=== PATIENT | male | born 1965 | race Caucasian/White ===

== ENCOUNTER 2022-06-25 12:25 | Inpatient (IN) | payer OTHER, SELFPAY ==
[~2022-06-25 12:25] MED LIST: Iopamidol 370 76% 100 ML VIAL ONE
[2022-06-25 13:15] LABS: #Eosinphils 0.2 10x3/uL (0.0-0.5); #Monocytes 0.5 10x3/uL (0.0-1.1); #Neutrophils 5.1 10x3/uL (1.5-8.4); %Basophils 0.4 % (0.0-2.0); %Eosinophils 2.9 % (0.0-6.0); %Lymphocytes 23.5 % (18.0-47.0); %Monocytes 6.2 % (0.0-10.0); %Neutrophils 66.6 % (40.0-75.0); Hemoglobin 17.1 g/dL (13.5-17.5); Mean Corpuscular HGB CONC 33.8 g/dL (32.0-36.0); Mean Platelet Volume 9.4 fl (7.4-10.4); Platelet Count 245 10x3/uL (150-450); RBC Distribution Width 11.8 % (11.5-14.5); White Blood Cell (WBC) Count 7.6 10x3/uL (3.5-10.5)
[2022-06-25 13:26] LABS: PTT 29.3 sec (22.0-33.0); Prothrombin Time 10.3 sec (9.5-12.1)
[2022-06-25 13:29] LABS: ALT (SGPT) 65 U/L (8-55); AST (SGOT) 36 U/L (5-34); Albumin 4.4 g/dL (3.5-5.0); Alkaline Phosphatase 63 U/L (40-110); Anion Gap 18 mmol/L (10-20); BUN (Urea Nitrogen) 18 mg/dL (8.4-25.7); Bilirubin, Total 0.9 mg/dL (0.2-1.2); Calc. Creatinine Clearance 0 mL/min (70-130); Calcium 9.5 mg/dL (7.8-10.44); Carbon Dioxide 20 mmol/L (22-29); Chloride 104 mmol/L (98-107); Estimated GFR 79; Globulin 3.3 g/dL (2.4-3.5); Glucose 253 mg/dL (70-105); Potassium 4.8 mmol/L (3.5-5.1); Protein, Total 7.7 g/dL (6.0-8.3); Sodium 137 mmol/L (136-145)
[2022-06-25] MEDS ORDERED: Dextrose 5% in Water 1,000 ML IV PRN (15:07)
[2022-06-25] MEDS ORDERED: Dextrose 50% Abboject 50 ML SYRINGE SLOW IVP PRN (15:07)
[2022-06-25] MEDS ORDERED: Acetaminophen 500 MG TAB ONE (19:07)
[2022-06-25] MEDS ORDERED: Acetaminophen 500 MG TAB PO SCH (19:15)
[2022-06-25] MEDS: Atorvastatin Calcium 20 MG TAB PO SCH (21:27)
[2022-06-26 03:58] VITALS: BMI 32.1
[2022-06-26 06:24] LABS: #Eosinphils 0.1 10x3/uL (0.0-0.5); #Monocytes 0.4 10x3/uL (0.0-1.1); #Neutrophils 3.1 10x3/uL (1.5-8.4); %Basophils 0.8 % (0.0-2.0); %Eosinophils 1.7 % (0.0-6.0); %Lymphocytes 30.2 % (18.0-47.0); %Monocytes 8.3 % (0.0-10.0); %Neutrophils 58.8 % (40.0-75.0); Hemoglobin 15.8 g/dL (13.5-17.5); Mean Corpuscular HGB CONC 33.4 g/dL (32.0-36.0); Mean Corpuscular Hemoglobin 27.9 pg (27.0-33.0); Mean Corpuscular Volume 83.6 fl (81.2-95.1); Mean Platelet Volume 9.3 fl (7.4-10.4); Platelet Count 203 10x3/uL (150-450); RBC Distribution Width 11.8 % (11.5-14.5); Red Blood Cell (RBC) Count 5.66 10x6/uL (4.32-5.72); White Blood Cell (WBC) Count 5.3 10x3/uL (3.5-10.5)
[2022-06-26 06:33] LABS: ALT (SGPT) 52 U/L (8-55); AST (SGOT) 26 U/L (5-34); Albumin 3.6 g/dL (3.5-5.0); Alkaline Phosphatase 53 U/L (40-110); Anion Gap 13 mmol/L (10-20); BUN (Urea Nitrogen) 17 mg/dL (8.4-25.7); Bilirubin, Total 0.9 mg/dL (0.2-1.2); Calc. Creatinine Clearance 123 mL/min (70-130); Carbon Dioxide 24 mmol/L (22-29); Chloride 104 mmol/L (98-107); Estimated GFR 96; Glucose 228 mg/dL (70-105); Potassium 4.4 mmol/L (3.5-5.1); Protein, Total 6.6 g/dL (6.0-8.3); Sodium 137 mmol/L (136-145)
[2022-06-26] MEDS ORDERED: Clopidogrel Bisulfate 75 MG TAB PO SCH (09:45)
[2022-06-26] MEDS: Aspirin 81 mg Enteric Coated Tablet PO SCH (09:57)
[2022-06-26 10:17] LABS: Cardiac Risk 4.5 (Less than 4.5)
[2022-06-26] MEDS: HumaLOG 300 UNITS/3 ML VIAL SC PRN ×2 (13:03→20:55)
[2022-06-26 17:36] LABS: Hemoglobin A1c 11.7 % (4.0-6.0)
[2022-06-26] MEDS ORDERED: Lantus 1000 UNITS/10 ML VIAL SC SCH (18:00)
[2022-06-26] MEDS: Atorvastatin Calcium 20 MG TAB PO SCH (20:55)
[2022-06-27 06:08] LABS: #Eosinphils 0.1 10x3/uL (0.0-0.5); #Monocytes 0.6 10x3/uL (0.0-1.1); #Neutrophils 3.6 10x3/uL (1.5-8.4); %Basophils 0.7 % (0.0-2.0); %Lymphocytes 28.5 % (18.0-47.0); %Monocytes 9.4 % (0.0-10.0); %Neutrophils 59.1 % (40.0-75.0); Hemoglobin 16.7 g/dL (13.5-17.5); Mean Corpuscular HGB CONC 34.3 g/dL (32.0-36.0); Mean Corpuscular Hemoglobin 28.5 pg (27.0-33.0); Mean Corpuscular Volume 83.2 fl (81.2-95.1); Mean Platelet Volume 9.1 fl (7.4-10.4); Platelet Count 210 10x3/uL (150-450); RBC Distribution Width 11.7 % (11.5-14.5); Red Blood Cell (RBC) Count 5.85 10x6/uL (4.32-5.72)
[2022-06-27 06:26] LABS: ALT (SGPT) 57 U/L (8-55); AST (SGOT) 27 U/L (5-34); Albumin 3.7 g/dL (3.5-5.0); Alkaline Phosphatase 55 U/L (40-110); Anion Gap 15 mmol/L (10-20); BUN (Urea Nitrogen) 21 mg/dL (8.4-25.7); Bilirubin, Total 1.1 mg/dL (0.2-1.2); Calc. Creatinine Clearance 114 mL/min (70-130); Calcium 9.1 mg/dL (7.8-10.44); Carbon Dioxide 24 mmol/L (22-29); Chloride 104 mmol/L (98-107); Estimated GFR 88; Globulin 3.3 g/dL (2.4-3.5); Glucose 193 mg/dL (70-105); Potassium 4.9 mmol/L (3.5-5.1); Sodium 138 mmol/L (136-145)
[2022-06-27] MEDS: HumaLOG 300 UNITS/3 ML VIAL SC PRN (06:26)
[2022-06-27] MEDS: Aspirin 81 mg Enteric Coated Tablet PO SCH (08:06)
[2022-06-27] MEDS ORDERED: Clopidogrel Bisulfate 75 MG TAB PO SCH (09:00)
[2022-06-27 13:28] VITALS: BP 176/89; TEMP 98.2
[2022-06-27] MEDS ORDERED: Lantus 1000 UNITS/10 ML VIAL SC SCH (21:00)
== END 2022-06-27 14:10 | disposition home or self-care (01) | DRG 65 ==
LOC: CSHERS 12:25 → CSHERHOLD 14:48 → CSHTELE 20:52
PROVIDERS: ADMIT Family Medicine; ATTEND Internal Medicine
DX: I63.9 Cerebral infarction, unspecified (principal); G81.94 Hemiplegia, unspecified affecting left nondominant side; E66.9 Obesity, unspecified; I10 Essential (primary) hypertension; N52.9 Male erectile dysfunction, unspecified; E11.9 Type 2 diabetes mellitus without complications; E78.5 Hyperlipidemia, unspecified; Z68.32 Body mass index [BMI] 32.0-32.9, adult; Z98.52 Vasectomy status; R29.702 NIHSS score 2
CPT/HCPCS: 0042T; 36415; 36416; 70450; 70551; 80053; 80061; 83036; 84443; 84484; 85025; 85610; 85730; 93005; 93306; 93880; 94760; J1650; J1815; Q9967

== ENCOUNTER 2025-01-14 14:12 | Inpatient (IN) | payer BC ==
[2025-01-14 14:55] LABS: INR-International Normal Ratio 1.0; Prothrombin Time 10.6 sec (9.5-12.1)
[2025-01-14 15:14] LABS: ALT (SGPT) 38 U/L (Less than 45); AST (SGOT) 24 U/L (11-34); Albumin 3.7 g/dL (3.1-4.5); Alkaline Phosphatase 52 U/L (40-110); Anion Gap 11 mmol/L (10-20); BUN (Urea Nitrogen) 33 mg/dL (8.4-25.7); Bilirubin, Total 0.8 mg/dL (0.3-1.2); Calc. Creatinine Clearance 0 mL/min (70-130); Calcium 8.6 mg/dL (7.8-10.44); Carbon Dioxide 26 mmol/L (22-29); Chloride 106 mmol/L (98-107); Globulin 2.6 g/dL (2.4-3.5); Glucose 126 mg/dL (70-105); Potassium 4.7 mmol/L (3.5-5.1); Sodium 138 mmol/L (136-145)
[2025-01-14 16:10] LABS: #Basophils 0.04 10x3/uL (0.0-0.2); #Eosinophils 0.09 10x3/uL (0.0-0.5); #Monocytes 0.51 10x3/uL (0.0-1.1); #Neutrophils 4.61 10x3/uL (1.5-8.4); %Basophils 0.5 % (0.0-2.0); %Eosinophils 1.2 % (0.0-6.0); %Lymphocytes 31.5 % (18.0-47.0); %Monocytes 6.6 % (0.0-10.0); %Neutrophils 60.1 % (40.0-75.0); Hematocrit 30.0 % (38.8-50.0); Hemoglobin 9.9 g/dL (13.5-17.5); Mean Corpuscular Hemoglobin 28.9 pg (27.0-33.0); Mean Corpuscular Volume 87.7 fL (81.2-95.1); Platelet Count 243 10x3/uL (150-450); Red Blood Cell (RBC) Count 3.42 10x6/uL (4.32-5.72); White Blood Cell (WBC) Count 7.68 10x3/uL (3.5-10.5)
[2025-01-14] MEDS ORDERED: Acetaminophen 325 MG TAB PO PRN (17:23)
[2025-01-14] MEDS ORDERED: Dextrose 50% Abboject 50 ML SYRINGE SLOW IVP PRN (17:23)
[2025-01-14] MEDS ORDERED: Glucagon 1 MG/ML KIT IM PRN (17:23)
[2025-01-14 17:37] LABS: Hematocrit 28.1 % (38.8-50.0); Hemoglobin 9.2 g/dL (13.5-17.5)
[2025-01-14 19:42] VITALS: BMI 29.9
[2025-01-14] MEDS: Famotidine/PF 20 mg/2ml Vial SLOW IVP SCH (20:01)
[2025-01-14] MEDS: GoLYTELY 4,000 ml Bottle PO SCH (20:01)
[2025-01-14] MEDS: Lisinopril 20 MG TAB PO SCH (20:01)
[2025-01-14] MEDS ORDERED: Melatonin 3 MG TAB PO PRN (21:00)
[2025-01-14] MEDS: FLU (Fluarix Triv) 25-26 (6MOS UP)/PF 45 MCG/0.5 ML Syringe IM ONE (21:00)
[2025-01-14] MEDS: PNEUMOC 20-VAL CONJ-DIP CRM/PF 0.5 ML SYRINGE IM ONE (21:00)
[2025-01-14 21:17] LABS: Hematocrit 26.0 % (38.8-50.0); Hemoglobin 8.9 g/dL (13.5-17.5)
[2025-01-15 01:17] LABS: Hematocrit 23.1 % (38.8-50.0); Hemoglobin 7.9 g/dL (13.5-17.5)
[2025-01-15 02:27] LABS: Glucose, Urine (Dipstick) Normal (Negative); Leukocyte Negative (Negative); Protein, Urine (Dipstick) Negative (Neg-Trace); Specific Gravity, Urine 1.010 (1.005-1.030)
[2025-01-15 02:28] LABS: Bacteria/HPF None Seen HPF (None Seen); CAUTI Indications for Culture Urological Procedure; RBC/HPF None Seen HPF (0-3); WBC/HPF None Seen HPF (0-3)
[2025-01-15 02:29] LABS: Urine Culture Reflex Yes Yes
[2025-01-15 05:17] LABS: Hematocrit 20.7 % (38.8-50.0); Hemoglobin 7.2 g/dL (13.5-17.5)
[2025-01-15 05:31] LABS: Anion Gap 9 mmol/L (10-20); BUN (Urea Nitrogen) 26 mg/dL (8.4-25.7); Calc. Creatinine Clearance 91 mL/min (70-130); Calcium 7.7 mg/dL (7.8-10.44); Carbon Dioxide 26 mmol/L (22-29); Chloride 108 mmol/L (98-107); Glucose 92 mg/dL (70-105); Potassium 4.2 mmol/L (3.5-5.1); Sodium 139 mmol/L (136-145)
[2025-01-15] MEDS: GoLYTELY 4,000 ml Bottle PO SCH (06:06)
[2025-01-15 08:45] LABS: Hematocrit 22.4 % (38.8-50.0); Hemoglobin 7.7 g/dL (13.5-17.5)
[2025-01-15] MEDS ORDERED: PROPOFOL 20 ML ONE ×3 (09:25→10:56)
[2025-01-15] MEDS ORDERED: SUCCINYLCHOLINE/SOD CL,ISO/PF 200 MG/10 ML SYRINGE FS ONE (09:51)
[2025-01-15] MEDS ORDERED: PHENYLEPHRINE-NS 100 MCG/ML 10 ML SYRINGE ONE (09:58)
[2025-01-15] MEDS ORDERED: Lidocaine 2% MPF 10 ML AMP (For Epidural Use) ONE (09:59)
[2025-01-15 12:13] LABS: Hematocrit 23.2 % (38.8-50.0); Hemoglobin 7.8 g/dL (13.5-17.5)
[2025-01-15 18:08] LABS: Hematocrit 21.3 % (38.8-50.0); Hemoglobin 7.1 g/dL (13.5-17.5)
[2025-01-15 23:37] LABS: Hematocrit 18.3 % (38.8-50.0); Hemoglobin 6.3 g/dL (13.5-17.5)
[2025-01-16 04:24] LABS: #Basophils Less than 0.03 10x3/uL (0.0-0.2); #Eosinophils 0.15 10x3/uL (0.0-0.5); #Monocytes 0.44 10x3/uL (0.0-1.1); #Neutrophils 3.31 10x3/uL (1.5-8.4); %Basophils 0.2 % (0.0-2.0); %Eosinophils 2.5 % (0.0-6.0); %Lymphocytes 33.3 % (18.0-47.0); %Monocytes 7.4 % (0.0-10.0); %Neutrophils 56.1 % (40.0-75.0); Hematocrit 21.6 % (38.8-50.0); Hemoglobin 7.5 g/dL (13.5-17.5); Mean Corpuscular Hemoglobin 29.3 pg (27.0-33.0); Mean Corpuscular Volume 84.4 fL (81.2-95.1); Platelet Count 170 10x3/uL (150-450); Red Blood Cell (RBC) Count 2.56 10x6/uL (4.32-5.72); White Blood Cell (WBC) Count 5.91 10x3/uL (3.5-10.5)
[2025-01-16 04:37] LABS: Anion Gap 6 mmol/L (10-20); BUN (Urea Nitrogen) 15 mg/dL (8.4-25.7); Calc. Creatinine Clearance 89 mL/min (70-130); Calcium 7.5 mg/dL (7.8-10.44); Carbon Dioxide 26 mmol/L (22-29); Chloride 111 mmol/L (98-107); Glucose 95 mg/dL (70-105); Potassium 4.2 mmol/L (3.5-5.1); Sodium 139 mmol/L (136-145)
[2025-01-16 04:56] VITALS: TEMP 98.3
[2025-01-16 08:42] VITALS: BP 129/76
[2025-01-16 12:00] LABS: Hematocrit 29.5 % (38.8-50.0); Hemoglobin 9.7 g/dL (13.5-17.5)
== END 2025-01-16 12:45 | disposition home or self-care (01) | DRG 378 ==
LOC: CSHERS 14:12 → CSHICU 17:20 → OBSVTOIN 01-15 17:35
PROVIDERS: ADMIT Internal Medicine; ATTEND Internal Medicine
PROC: 0DBN8ZX Excision of Sigmoid Colon, Via Natural or Artificial Opening Endoscopic, Diagnostic (ICD-10-PCS; principal; 2025-01-15)
PROC: 30233N1 Transfusion of Nonautologous Red Blood Cells into Peripheral Vein, Percutaneous Approach (ICD-10-PCS; 2025-01-16)
DX: K57.31 Diverticulosis of large intestine without perforation or abscess with bleeding (principal); D62 Acute posthemorrhagic anemia; I10 Essential (primary) hypertension; E78.5 Hyperlipidemia, unspecified; E11.9 Type 2 diabetes mellitus without complications; Z86.73 Personal history of transient ischemic attack (TIA), and cerebral infarction without residual deficits; Z98.52 Vasectomy status; Z79.82 Long term (current) use of aspirin; Z79.84 Long term (current) use of oral hypoglycemic drugs; Z79.899 Other long term (current) drug therapy
CPT/HCPCS: 36415; 36416; 36430; 74177; 80048; 80053; 81001; 82274; 85014; 85018; 85025; 85610; 86850; 86900; 86901; 87086; 88305; J1308; J2250; J2704; J7030; P9016